=== PATIENT | male | born 1950 | race Caucasian/White ===

== ENCOUNTER 2016-12-30 05:14 | Emergency (ER) | payer MEDICARE ==
[~2016-12-30] VITALS: Ht 180.3 cm; Wt 70.0 kg
[2016-12-30 05:17] VITALS: BP 146/66; PULSE 118; RESP 18; TEMP 98.2; O2SAT 96
[2016-12-30 05:31] VITALS: BP 133/66; PULSE 115; RESP 17; O2SAT 96
[2016-12-30] MEDS ORDERED: TIOT12.9 INH (05:38)
[2016-12-30] MEDS ORDERED: METO25TA3 PO (05:38)
[2016-12-30] MEDS ORDERED: ADVA250A INH (05:38)
[2016-12-30] MEDS ORDERED: FLUT50SP EACH NARE (05:38)
[2016-12-30] MEDS ORDERED: SPIRCAP INH (05:38)
[2016-12-30] MEDS ORDERED: ALBU0.63 NEB (05:38)
[2016-12-30] MEDS ORDERED: ROSU1TAB6 PO (05:38)
--- NOTE | 2016-12-30 05:40 | PD ---
HPI Chief Complaint: Flank/Kidney Pain Time Seen by Provider: 05:37 Travel History International Travel<30 days: No Contact w/Intl Traveler<30days: No Traveled to known affect area: No History of Present Illness HPI The patient is a 66 year old male who presents to the [facility] emergency department with a history of noticing blood in his urine and small amount yesterday. He denies having any dysuria, urinary frequency, or urinary urgency , however around midnight began to have bright red blood in the urine, associated with left-sided abdominal pain. The patient reports having a history of kidney stones which this discomfort feels similar to, however he also has a history of an aortic dissection type B in 2013. The patient reports that the pain in the abdomen is a burning sensation. He reports having associated nausea without vomiting. He denies having any diarrhea. On review of systems, he has had cough and congestion for 2 days. He has had a cough productive of green phlegm. He reports having chronic shortness of breath with exertion related to COPD that has not been in usual. On review of systems otherwise, he denies having any recent fevers, neck pain, chest pain, or neurologic symptoms. [facility] Past Medical History Narrative Medical The patient's past medical history is significant for left ventricular hypertrophy, hypothyroid disorder, aortic dissection, history of kidney stones 2, hypertension, tachycardia, COPD, history of being hard of hearing in the right ear. Cardiovascular Problems: Yes (AORTIC DISSECTION, LVH) COPD: Yes Diminished Hearing: Yes ([place] RIGHT EAR) Hypertension: Yes Kidney Stones: Yes Immunizations Current: Yes Thyroid Disease: Yes (HYPO) Past Surgical History Narrative Surgical The patient's past surgical history is significant for a partial colon resection related to a tumor that was found to be benign, history of polyp removal via colonoscopy in November. Abdominal Surgery: Yes (COLON RESECTION, POLYPS REMOVED) Social History Alcohol Use: No Tobacco Use: No Substance Use: No Allergies-Medications (Allergen,Severity, Reaction): Coded Allergies: No Known Allergies (Unverified , 12/30/16) Reported Meds & Prescriptions Reported Meds & Active Scripts Active Reported Advair Diskus Inh (Fluticasone-Salmeterol Inh) 250-50 Mcg/Blist Aer 1 Puff INH BID Rinse mouth after use. Fluticasone Nasal [place] 50 Mcg/Act Naspr 50 Mcg EACH NARE BID 50 mcg/spray Rosuvastatin (Rosuvastatin Calcium) 10 Mg Tab 10 Mg PO HS Metoprolol Tartrate 25 Mg Tab 25 Mg PO DAILY Spiriva Respimat Inh (Tiotropium Inh) 2.5 Mcg/Act Aero 2 Puff INH DAILY 2.5 mcg = 1 inhalation Albuterol Neb (Albuterol Sulfate) 0.63 Mg/3 Ml Neb 0.63 Mg NEB Q4HR NEB PRN Review of Systems Except as stated in HPI: all other systems reviewed are Neg General / Constitutional: No: Fever Eyes: No: Visual changes HENT: No: Headaches Cardiovascular: No: Chest Pain or Discomfort Respiratory: No: Shortness of Breath Gastrointestinal: Positive: Nausea, Abdominal Pain, No: Vomiting, Diarrhea Genitourinary: Positive: Hematuria, No: Urgency, Frequency, Dysuria, Flank Pain Musculoskeletal: No: Pain Skin: No Rash Neurologic: No: Weakness, Focal Abnormalities, Change in Mentation, Slurred Speech, Sensory Disturbance Psychiatric: No: Depression Endocrine: No: Polydipsia Hematologic/Lymphatic: No: Easy Bruising Physical Exam Narrative General: The patient is a well-developed well-nourished male, uncomfortable appearing on arrival. He is holding the left side of his abdomen Head and Neck exam: Head is normocephalic atraumatic. Eyes: EOMI, pupils are equal round and reactive to light. Nose: Midline septum with pink mucous membranes Mouth: Dentition unremarkable. Moist mucus membranes. Posterior oropharynx is not erythematous. No tonsillar hypertrophy. Uvula midline. Airway patent. Neck: No palpable lymphadenopathy. No nuchal rigidity. No thyromegaly. Cardiovascular: Sinus tachycardia in the low 100s murmurs, gallops, or rubs. No pulse deficit to the extremities on simultaneous auscultation and palpation of his radial artery. Lungs: Soft expiratory wheezes are audible bilaterally, no rhonchi, no crackles. Abdomen: Soft, with reported tenderness on palpation laterally along the mid aspect of the abdomen. No other tenderness on palpation of the other quadrants of the abdomen. No guarding, rebound, or rigidity. Negative Pearson sign. No tenderness on palpation of McBurney's point. Extremities: No clubbing, cyanosis, or edema. 2+ pulses in all 4 extremities. No calf tenderness on palpation. Back: No spinous process tenderness to palpation. No costovertebral angle tenderness to palpation. Neurologic Exam: Grossly nonfocal. Skin Exam: No rash noted. Intact skin that is warm and dry. Data Data Last Documented VS Vital Signs Date Time Temp Pulse Resp B/P (MAP) Pulse Ox O2 Delivery O2 Flow Rate FiO2 12/30/16 05:32 115 18 12/30/16 05:31 133/66 (88) 96 12/30/16 05:17 98.2 Orders Orders Complete Blood Count With Diff (12/30/16 05:38) Comprehensive Metabolic Panel (12/30/16 05:38) Lipase (12/30/16 05:38) Urinalysis - C+S If Indicated (12/30/16 05:38) Magnesium (Mg) (12/30/16 05:38) Iv Access Insert/Monitor (12/30/16 05:38) Ecg Monitoring (12/30/16 05:38) Oximetry (12/30/16 05:38) Prothrombin Time / Inr (Pt) (12/30/16 05:53) Act Partial Throm Time (Ptt) (12/30/16 05:53) Cta Thor Abd Aorta W Iv C W3d (12/30/16 05:53) Hydromorphone Pf Inj (Dilaudid Pf Inj) (12/30/16 06:00) Ondansetron Inj (Zofran Inj) (12/30/16 06:00) Sodium Chlor 0.9% 1000 Ml Inj (Ns 1000 M (12/30/16 06:00) Labs Laboratory Tests Test 12/30/16 05:45 White Blood Count 8.9 TH/MM3 Red Blood Count 6.34 MIL/MM3 Hemoglobin 18.9 GM/DL Hematocrit 55.3 % Mean Corpuscular Volume 87.1 FL Mean Corpuscular Hemoglobin 29.8 PG Mean Corpuscular Hemoglobin Concent 34.2 % Red Cell Distribution Width 14.6 % Platelet Count 179 TH/MM3 Mean Platelet Volume 7.3 FL Neutrophils (%) (Auto) 63.0 % Lymphocytes (%) (Auto) 23.3 % Monocytes (%) (Auto) 5.7 % Eosinophils (%) (Auto) 7.0 % Basophils (%) (Auto) 1.0 % Neutrophils # (Auto) 5.6 TH/MM3 Lymphocytes # (Auto) 2.1 TH/MM3 Monocytes # (Auto) 0.5 TH/MM3 Eosinophils # (Auto) 0.6 TH/MM3 Basophils # (Auto) 0.1 TH/MM3 CBC Comment DIFF FINAL Differential Comment Prothrombin Time 10.7 SEC Prothromb Time International Ratio 1.0 RATIO Activated Partial Thromboplast Time 24.4 SEC Blood Urea Nitrogen 18 MG/DL Creatinine 1.39 MG/DL Random Glucose 117 MG/DL Total Protein 8.2 GM/DL Albumin 4.3 GM/DL Calcium Level 9.1 MG/DL Magnesium Level 2.3 MG/DL Alkaline Phosphatase 120 U/L Aspartate Amino Transf (AST/SGOT) 23 U/L Alanine Aminotransferase (ALT/SGPT) 22 U/L Total Bilirubin 0.6 MG/DL Sodium Level 142 MEQ/L Potassium Level 4.7 MEQ/L Chloride Level 106 MEQ/L Carbon Dioxide Level 28.5 MEQ/L Anion Gap 8 MEQ/L Estimat Glomerular Filtration Rate 51 ML/MIN Lipase 74 U/L MDM Medical Decision Making Medical Screen Exam Complete: Yes Emergency Medical Condition: Yes Medical Record Reviewed: Yes Differential Diagnosis Kidney stone, versus pyelonephritis, versus muscle strain, versus aortic dissection Narrative Course During the course of the patients emergency department visit, the patients history, examination, and differential diagnosis were reviewed with the patient. The patient was placed on a integrated marketing specialist with oximetry and frequent blood pressure monitoring. The patient had IV access obtained and blood work sent for analysis. The patient had an ECG done on arrival that shows a sinus rhythm heart rate of 97, no acute ST segment elevation or depression. QRS duration is 81 ms, QTC is 392 ms. The patient was initially provided normal saline 1 L IV fluid bolus, hydromorphone 0.5 mg IV, Zofran 4 mg IV. The patients laboratory studies were reviewed and remarkable for a white count of 8.9, hemoglobin 18.9, platelets 179 with 7.0 eosinophils. CMP is remarkable for creatinine 1.39, glucose 117, alkaline phosphatase 120, PT 10.7, PTT 24.4 CT scan of the thoracic and abdominal aorta is pending at the conclusion of my shift, the patient's case will be checked out to the oncoming emergency physician to disposition the patient based on the conclusion of the patient's workup. Annalise Putnam MD Dec 30, 2016 05:40
[2016-12-30 05:53] LABS: AUTOMATED NEUTROPHIL # 5.6 TH/MM3 (1.8-7.7); BASOPHIL # 0.1 TH/MM3 (0-0.2); EOSINOPHIL # 0.6 TH/MM3 (0-0.4); HEMATOCRIT 55.3 % (39.0-51.0); HEMOGLOBIN 18.9 GM/DL (13.0-17.0); LYMPH % 23.3 % (9.0-44.0); LYMPHOCYTE # 2.1 TH/MM3 (1.0-4.8); MEAN CELL VOLUME 87.1 FL (80.0-100.0); MEAN CORPUSCULAR HEMOGLOBIN 29.8 PG (27.0-34.0); MEAN CORPUSCULAR HGB CONC 34.2 % (32.0-36.0); MEAN PLATELET VOLUME 7.3 FL (7.0-11.0); MONO % 5.7 % (0.0-8.0); MONOCYTE # 0.5 TH/MM3 (0-0.9); PLATELET COUNT 179 TH/MM3 (150-450); RED BLOOD COUNT 6.34 MIL/MM3 (4.50-5.90); RED CELL DISTRIBUTION WIDTH 14.6 % (11.6-17.2); WHITE BLOOD COUNT 8.9 TH/MM3 (4.0-11.0)
[2016-12-30] MEDS ORDERED: ONDANSETRON HCL 4 MG/2 ML VIAL IV PUSH ONE (06:00)
[2016-12-30] MEDS ORDERED: SODIUM CHLOR 0.9% 1000 ML INJ 1,000 ML IV SCH (06:00)
[2016-12-30] MEDS ORDERED: HYDROmorphone HCL PF 0.5 MG/0.5 ML SYRINGE IV PUSH ONE ×2 (06:00→07:45)
[2016-12-30 06:15] LABS: ALKALINE PHOSPHATASE 120 U/L (45-117); TOTAL BILIRUBIN ADULT 0.6 MG/DL (0.2-1.0); TOTAL PROTEIN 8.2 GM/DL (6.4-8.2)
[2016-12-30 06:35] LABS: ALBUMIN 4.3 GM/DL (3.4-5.0); ALT (GPT) 22 U/L (12-78); AST (GOT) 23 U/L (15-37); BICARBONATE 28.5 MEQ/L (21.0-32.0); BLOOD UREA NITROGEN 18 MG/DL (7-18); CALCIUM 9.1 MG/DL (8.5-10.1); CHLORIDE 106 MEQ/L (98-107); CREATININE 1.39 MG/DL (0.60-1.30); GLOMERULAR FILTRATION RATE 51 ML/MIN (>89); GLUCOSE,RANDOM 117 MG/DL (74-106); LIPASE 74 U/L (73-393); MAGNESIUM 2.3 MG/DL (1.5-2.5); SODIUM (NA) 142 MEQ/L (136-145)
[2016-12-30 06:41] LABS: PROTHROMBIN TIME - PATIENT 10.7 SEC (9.8-11.6)
[2016-12-30] MEDS ORDERED: IOHEXOL 350 MG/ML 10 ML VIAL (for RAD DIAG) IVCONTRAST ONE (07:27)
[2016-12-30 07:30] VITALS: BP 155/71; PULSE 110; RESP 18; O2SAT 95
--- NOTE | 2016-12-30 08:22 | RADRPT ---
EXAM DATE/TIME: 12/30/2016 07:02 [place] COMPARISON: No previous studies available for comparison. INDICATIONS : Left flank pain with hematuria. IV CONTRAST: 94 cc Omnipaque 350 (iohexol) IV RADIATION DOSE: 23.79 CTDIvol (mGy) MEDICAL HISTORY : Renal calculi. Hypertension. Chronic obstructive pulmonary disease. AAA. SURGICAL HISTORY : Colon resection. ENCOUNTER: Initial ACUITY: 1 day PAIN SCALE: 8/10 LOCATION: Left flank TECHNIQUE: Volumetric scanning was performed using a multi-row detector CT scanner. The data was post processed with a variety of visualization algorithms including full volume maximum intensity projection, multi -planar sliding thin slab reformation, curved planar reformation, and surface rendering techniques. Using automated exposure control and adjustment of the mA and/or kV according to patient size, radiat ion dose was kept as low as reasonably achievable to obtain optimal diagnostic quality images. DICOM format image data is available electronically for review and comparison. FINDINGS: There is evidence of acute obstructive uropathy of the left proximal ureter secondary to an 8 mm calc ified calculus resulting in moderate ureteropelvocaliectasis on the left. There is an extensive type I aortic dissection (DeBakey classification) which involves the ascending aorta, aortic arch and shilo cending aorta and extends to the level several centimeters above the aortic bifurcation. The patient gives a history of extensive aortic dissection. The appearance suggests chronic aortic dissection b ut it is difficult to determine if this has extended since the diagnosis as no previous study is avai lable for comparison. The liver, spleen, pancreas and adrenal glands are unremarkable. Bilateral renal cysts are noted. T he largest cyst is noted on the right and measures 7.2 cm. The inferior vena cava is normal. There is no paraaortic, retroperitoneal or mesenteric lymphadenopathy. The gallbladder is unremarkable. D egenerative changes and scoliosis of the thoracolumbar spine are noted. The prostate gland is marked ly enlarged. Bilateral inguinal hernias containing only fat are noted. No bowel obstruction is note d. Extensive emphysematous changes are noted within the lungs bilaterally. CONCLUSION: 1. Acute obstructive uropathy of the left proximal ureter secondary to an 8 mm calcified ureteral ca lculus resulting in moderate ureteropelvocaliectasis on the left. 2. Type I aortic dissection which extends from the ascending thoracic aorta to the level several kacey timeters proximal to the bifurcation and likely is chronic. 3. Markedly enlarged prostate gland. 4. Bilateral inguinal hernias containing only fat. 5. Bilateral renal cysts. 6. Degenerative changes and scoliosis of the thoracolumbar spine. 7. Diffuse emphysematous changes bilaterally. Carlos Miguel MD on December 30, 2016 at 7:38 Board Certified Radiologist. This report was verified electronically.
[2016-12-30 08:52] LABS: BILIRUBIN, URINE NEG (NEG); BLOOD, URINE LARGE (NEG); CALCIUM OXALATE CRYSTALS,URINE FEW /hpf; GLUCOSE,URINE NEG (NEG); KETONE, URINE TRACE mg/dL (NEG); NITRITE,URINE NEG (NEG); URINE COLOR LIGHT-RED (YELLW/STRAW); URINE LEUKOCYTE ESTERASE TRACE (NEG)
[2016-12-30 09:00] VITALS: BP 119/68; PULSE 100; RESP 20; O2SAT 95
[2016-12-30] MEDS ORDERED: ZOFR4TAB3 SL (09:11)
[2016-12-30] MEDS ORDERED: HYDR-3533 PO (09:11)
--- NOTE | 2016-12-30 09:12 | PD ---
Physical Exam Date Seen by Provider: Dec 30, 2016 Time Seen by Provider: 07:00 Narrative Case signed out to me at [address] Putnam, please see Dr. Putnam's note for further details. Patient here with left flank pains, hematuria, awaiting CAT scan for further evaluation. Laboratory Tests Test 12/30/16 05:45 12/30/16 08:30 Red Blood Count 6.34 MIL/MM3 (4.50-5.90) Hemoglobin 18.9 GM/DL (13.0-17.0) Hematocrit 55.3 % (39.0-51.0) Eosinophils (%) (Auto) 7.0 % (0.0-4.0) Eosinophils # (Auto) 0.6 TH/MM3 (0-0.4) Creatinine 1.39 MG/DL (0.60-1.30) Random Glucose 117 MG/DL (74-106) Alkaline Phosphatase 120 U/L (45-117) Estimat Glomerular Filtration Rate 51 ML/MIN (>89) Urine Color LIGHT-RED (YELLW/STRAW) Urine Turbidity HAZY (CLEAR) Urine Specific [place] 1.050 (1.002-1.035) Urine Protein 30 mg/dL (NEG-TRACE) Urine Ketones TRACE mg/dL (NEG) Urine Occult Blood LARGE (NEG) Urine Leukocyte Esterase TRACE (NEG) Urine WBC 6 /hpf (0-5) Urine Calcium Oxalate Crystals FEW /hpf (NONE) Lab work shows significant hematuria. CAT scan was discussed with Dr. Elam of radiology and he sees an obvious aortic dissection which the patient has history of having. At this point, he does have a proximal 8 mm stone, consistent with his symptoms and hematuria. There is hydronephrosis. At this point, I do not think that the aortic dissection is acute, patient has known history for which she was treated in [place]. Case was then discussed with Dr. Barrera of urology and he states that he will be willing to see the patient this afternoon and possible lithotripsy tomorrow. Patient had been given 2 doses of Dilaudid by Dr. Putnam and me, and on reevaluation at 9 AM is fairly comfortable, is comfortable with following up as an outpatient today. My plan would be to release him with instructions to follow-up with urology. Return for any worsening in pain, vomiting, or new symptoms as needed. The plan has been discussed with the patient and he states understanding. Data Data Last Documented VS Vital Signs Date Time Temp Pulse Resp B/P (MAP) Pulse Ox O2 Delivery O2 Flow Rate FiO2 12/30/16 05:32 115 18 12/30/16 05:31 133/66 (88) 96 12/30/16 05:17 98.2 Orders Orders Complete Blood Count With Diff (12/30/16 05:38) Comprehensive Metabolic Panel (12/30/16 05:38) Lipase (12/30/16 05:38) Urinalysis - C+S If Indicated (12/30/16 05:38) Magnesium (Mg) (12/30/16 05:38) Iv Access Insert/Monitor (12/30/16 05:38) Ecg Monitoring (12/30/16 05:38) Oximetry (12/30/16 05:38) Prothrombin Time / Inr (Pt) (12/30/16 05:53) Act Partial Throm Time (Ptt) (12/30/16 05:53) Cta Thor Abd Aorta W Iv C W3d (12/30/16 05:53) Hydromorphone Pf Inj (Dilaudid Pf Inj) (12/30/16 06:00) Ondansetron Inj (Zofran Inj) (12/30/16 06:00) Sodium Chlor 0.9% 1000 Ml Inj (Ns 1000 M (12/30/16 06:00) Electrocardiogram (12/30/16 ) Iohexol 350 Inj (Omnipaque 350 Inj) (12/30/16 07:27) Hydromorphone Pf Inj (Dilaudid Pf Inj) (12/30/16 07:45) Labs Laboratory Tests Test 12/30/16 05:45 12/30/16 08:30 White Blood Count 8.9 TH/MM3 Red Blood Count 6.34 MIL/MM3 Hemoglobin 18.9 GM/DL Hematocrit 55.3 % Mean Corpuscular Volume 87.1 FL Mean Corpuscular Hemoglobin 29.8 PG Mean Corpuscular Hemoglobin Concent 34.2 % Red Cell Distribution Width 14.6 % Platelet Count 179 TH/MM3 Mean Platelet Volume 7.3 FL Neutrophils (%) (Auto) 63.0 % Lymphocytes (%) (Auto) 23.3 % Monocytes (%) (Auto) 5.7 % Eosinophils (%) (Auto) 7.0 % Basophils (%) (Auto) 1.0 % Neutrophils # (Auto) 5.6 TH/MM3 Lymphocytes # (Auto) 2.1 TH/MM3 Monocytes # (Auto) 0.5 TH/MM3 Eosinophils # (Auto) 0.6 TH/MM3 Basophils # (Auto) 0.1 TH/MM3 CBC Comment DIFF FINAL Differential Comment Prothrombin Time 10.7 SEC Prothromb Time International Ratio 1.0 RATIO Activated Partial Thromboplast Time 24.4 SEC Blood Urea Nitrogen 18 MG/DL Creatinine 1.39 MG/DL Random Glucose 117 MG/DL Total Protein 8.2 GM/DL Albumin 4.3 GM/DL Calcium Level 9.1 MG/DL Magnesium Level 2.3 MG/DL Alkaline Phosphatase 120 U/L Aspartate Amino Transf (AST/SGOT) 23 U/L Alanine Aminotransferase (ALT/SGPT) 22 U/L Total Bilirubin 0.6 MG/DL Sodium Level 142 MEQ/L Potassium Level 4.7 MEQ/L Chloride Level 106 MEQ/L Carbon Dioxide Level 28.5 MEQ/L Anion Gap 8 MEQ/L Estimat Glomerular Filtration Rate 51 ML/MIN Lipase 74 U/L Urine Color LIGHT-RED Urine Turbidity HAZY Urine pH 6.0 Urine Specific Excel 1.050 Urine Protein 30 mg/dL Urine Glucose (UA) NEG mg/dL Urine Ketones TRACE mg/dL Urine Occult Blood LARGE Urine Nitrite NEG Urine Bilirubin NEG Urine Urobilinogen LESS THAN 2.0 MG/DL Urine Leukocyte Esterase TRACE Urine RBC /hpf Urine WBC 6 /hpf Urine Calcium Oxalate Crystals FEW /hpf Microscopic Urinalysis Comment CULT NOT INDICATED MDM Medical Record Reviewed: Yes Supervised Visit with MALLIKA: No Diagnosis Primary Impression: Renal colic on left side Referrals: Alon Barrera MD 1 day Call to confirm afternoon appointment Med/Other Pt SpecificInfo: Prescription(s) given Scripts Ondansetron Odt (Zofran Odt) 4 Mg Tab 4 MG SL Q6HR Y for Nausea/Vomiting, #7 TAB 0 Refills Prov: Trey Vickers MD 12/30/16 Hydrocodone-Acetaminophen (Lortab) 5-325 Mg Tab 1-2 TAB PO Q6H Y for PAIN, #20 TAB 0 Refills Prov: Trey Vickers MD 12/30/16 Disposition: 01 DISCHARGE HOME Condition: Stable [place],Rewadee MD Dec 30, 2016 09:11
--- NOTE | 2016-12-30 21:12 | EKG ---
Date Performed: 12/30/2016 Time Performed: 05:40:39 PTAGE: 66 years EKG: Sinus rhythm NORMAL ECG NO PREVIOUS TRACING DOCTOR: Jared Meyer Interpretating Date/Time 12/30/2016 21:11:05
--- NOTE | 2016-12-30 21:12 | EKG ---
Date Performed: 12/30/2016 Time Performed: 05:40:39 PTAGE: 66 years EKG: Sinus rhythm NORMAL ECG NO PREVIOUS TRACING DOCTOR: Jared Meyer Interpretating Date/Time 12/30/2016 21:11:05
--- NOTE | 2016-12-30 21:12 | EKG ---
Date Performed: 12/30/2016 Time Performed: 05:40:39 PTAGE: 66 years EKG: Sinus rhythm NORMAL ECG NO PREVIOUS TRACING DOCTOR: Jared Meyer Interpretating Date/Time 12/30/2016 21:11:05
== END 2016-12-30 09:53 | disposition home or self-care (01) ==
LOC: NEPC 05:14
DX: N23 Unspecified renal colic (principal); R31.9 Hematuria, unspecified; N13.30 Unspecified hydronephrosis; N40.0 Benign prostatic hyperplasia without lower urinary tract symptoms; K40.20 Bilateral inguinal hernia, without obstruction or gangrene, not specified as recurrent; N28.1 Cyst of kidney, acquired; R00.0 Tachycardia, unspecified; R05 Cough; R09.81 Nasal congestion
CPT/HCPCS: 71275; 74174; 80053; 81001; 83690; 83735; 85025; 85610; 85730; 93005; 96361; 96374; 96375; 99285; J1170; J2405; J7030; Q9967

== ENCOUNTER 2016-12-31 03:27 | Emergency (ER) | payer MEDICARE ==
[~2016-12-31] VITALS: Ht 180.3 cm; Wt 70.0 kg
[~2016-12-31 03:27] MED LIST: ADVA250A INH; ALBU0.63 NEB; FLUT50SP EACH NARE; HYDR-3533 PO; METO25TA3 PO; ROSU1TAB6 PO; TIOT12.9 INH; ZOFR4TAB3 SL
[2016-12-31 03:28] VITALS: BP 190/132; PULSE 122; RESP 20; TEMP 98; O2SAT 93
[2016-12-31 03:32] VITALS: BP 177/88; PULSE 112; RESP 20; TEMP 97.6; O2SAT 94
--- NOTE | 2016-12-31 03:38 | PD ---
HPI Chief Complaint: Flank/Kidney Pain Time Seen by Provider: 03:38 Travel History International Travel<30 days: No Contact w/Intl Traveler<30days: No Traveled to known affect area: No History of Present Illness HPI 66-year-old male came to the emergency room with history of intractable left flank pain. Patient was seen in the emergency room 2 days ago for left flank pain and was diagnosed with an 8 mm ureteral stone. He was discharged home to follow up with urology. As per the patient he went to see urology and was told that he would have a stent put in on January 11. However his pain has come back and he is very uncomfortable. Patient was tachycardic upon arrival. Denies any fever or chills. Patient says he was discharged home on pain medications which he is been trying to take but has not been helpful. [facility], [facility] Past Medical History Narrative Medical List of his past medical, surgical, social and family history is reviewed from the nursing note. Cardiovascular Problems: Yes (AORTIC DISSECTION, LVH) COPD: Yes Diminished Hearing: Yes ([place] RIGHT EAR) Hypertension: Yes Kidney Stones: Yes Immunizations Current: Yes Thyroid Disease: Yes (HYPO) Past Surgical History Abdominal Surgery: Yes (COLON RESECTION, POLYPS REMOVED) Social History Alcohol Use: No Tobacco Use: No Substance Use: No Allergies-Medications (Allergen,Severity, Reaction): Coded Allergies: No Known Allergies (Unverified , 12/31/16) Comments No known allergies. Reported Meds & Prescriptions Reported Meds & Active Scripts Active Zofran Odt (Ondansetron Odt) 4 Mg Tab 4 Mg SL Q6HR PRN Lortab (Hydrocodone-Acetaminophen) 5-325 Mg Tab 1-2 Tab PO Q6H PRN Reported Advair Diskus Inh (Fluticasone-Salmeterol Inh) 250-50 Mcg/Blist Aer 1 Puff INH BID Rinse mouth after use. Fluticasone Nasal [place] 50 Mcg/Act Naspr 50 Mcg EACH NARE BID 50 mcg/spray Rosuvastatin (Rosuvastatin Calcium) 10 Mg Tab 10 Mg PO HS Metoprolol Tartrate 25 Mg Tab 25 Mg PO DAILY Spiriva Respimat Inh (Tiotropium Inh) 2.5 Mcg/Act Aero 2 Puff INH DAILY 2.5 mcg = 1 inhalation Albuterol Neb (Albuterol Sulfate) 0.63 Mg/3 Ml Neb 0.63 Mg NEB Q4HR NEB PRN Narrative Medication List of his home medications reviewed from the nursing note. Review of Systems Except as stated in HPI: all other systems reviewed are Neg Genitourinary: Positive: Flank Pain Physical Exam Narrative GENERAL: Awake, alert, moderate distress SKIN: Focused skin assessment warm/dry. HEAD: Atraumatic. Normocephalic. EYES: Pupils equal and round. No scleral icterus. No injection or drainage. ENT: No nasal bleeding or discharge. Mucous membranes pink and moist. NECK: Trachea midline. No JVD. CARDIOVASCULAR: Regular rate and rhythm. No murmur appreciated. RESPIRATORY: No accessory muscle use. Clear to auscultation. Breath sounds equal bilaterally. GASTROINTESTINAL: Abdomen soft, non-tender, nondistended. Hepatic and splenic margins not palpable. MUSCULOSKELETAL: No obvious deformities. No clubbing. No cyanosis. No edema. NEUROLOGICAL: Awake and alert. No obvious cranial nerve deficits. Motor grossly within normal limits. Normal speech. PSYCHIATRIC: Appropriate mood and affect; insight and judgment normal. Data Data Last Documented VS Orders Orders Complete Blood Count With Diff (12/31/16 03:46) Basic Metabolic Panel (Bmp) (12/31/16 03:46) Ecg Monitoring (12/31/16 03:46) Iv Access Insert/Monitor (12/31/16 03:46) Ketorolac Inj (Toradol Inj) (12/31/16 04:00) Morphine Inj (Morphine Inj) (12/31/16 04:00) Ondansetron Inj (Zofran Inj) (12/31/16 04:00) Sodium Chloride 0.9% Flush (Ns Flush) (12/31/16 04:00) Sodium Chlor 0.9% 1000 Ml Inj (Ns 1000 M (12/31/16 03:46) Ed Discharge Order (12/31/16 06:01) Labs Laboratory Tests Test 12/31/16 04:04 12/31/16 04:48 White Blood Count 9.8 TH/MM3 Red Blood Count 5.78 MIL/MM3 Hemoglobin 17.1 GM/DL Hematocrit 49.6 % Mean Corpuscular Volume 85.9 FL Mean Corpuscular Hemoglobin 29.6 PG Mean Corpuscular Hemoglobin Concent 34.4 % Red Cell Distribution Width 14.8 % Platelet Count 161 TH/MM3 Mean Platelet Volume 7.4 FL Neutrophils (%) (Auto) 77.7 % Lymphocytes (%) (Auto) 12.7 % Monocytes (%) (Auto) 6.0 % Eosinophils (%) (Auto) 2.8 % Basophils (%) (Auto) 0.8 % Neutrophils # (Auto) 7.6 TH/MM3 Lymphocytes # (Auto) 1.2 TH/MM3 Monocytes # (Auto) 0.6 TH/MM3 Eosinophils # (Auto) 0.3 TH/MM3 Basophils # (Auto) 0.1 TH/MM3 CBC Comment DIFF FINAL Differential Comment Blood Urea Nitrogen 16 MG/DL Creatinine 1.27 MG/DL Random Glucose 104 MG/DL Calcium Level 8.2 MG/DL Sodium Level 141 MEQ/L Potassium Level 4.2 MEQ/L Chloride Level 110 MEQ/L Carbon Dioxide Level 25.0 MEQ/L Anion Gap 6 MEQ/L Estimat Glomerular Filtration Rate 56 ML/MIN MDM Medical Decision Making Medical Screen Exam Complete: Yes Emergency Medical Condition: Yes Medical Record Reviewed: Yes Differential Diagnosis Ureteral colic, ureteral calculus Narrative Course 5:40 AM blood test results were back and within acceptable limits. Patient was given 1 L of IV fluid bolus and medicated for pain and nausea. He looked comfortable after the pain medication. I discussed the case with Dr. Barrera and he recalled seeing the patient yesterday. He said that if patient is comfortable he could be discharged and he would see the patient in his office at 8 in the morning today and put a stent in today. Patient was informed of this plan and he was comfortable going home and go to his office. I'll discharge him. Procedures EKG Prior to Arrival: No Physician Communication Physician Communication Dr. Barrera Diagnosis Primary Impression: Ureteral calculi Additional Impression: Renal colic Referrals: Alon Barrera MD Additional Instructions: Please go to see Dr. Nvaya Aiken in his office at 8 AM. He plans to put a ureteral stent. Do not eat or drink anything till then. Med/Other Pt SpecificInfo: No Change to Meds Disposition: 01 DISCHARGE HOME Condition: Stable Brett Meyer MD Dec 31, 2016 03:38
[2016-12-31] MEDS ORDERED: SODIUM CHLOR 0.9% 1000 ML INJ 1,000 ML IV ONE ×2 (03:46)
[2016-12-31] MEDS ORDERED: SODIUM CHLORIDE 0.9% FLUSH 10 ML FLUSH IVF PRN ×2 (04:00)
[2016-12-31] MEDS ORDERED: KETOROLAC TROMETHAMINE 30 MG/ML (IVP) VIAL IV PUSH ONE ×2 (04:00)
[2016-12-31] MEDS ORDERED: ONDANSETRON HCL 4 MG/2 ML VIAL IV PUSH ONE ×2 (04:00)
[2016-12-31] MEDS ORDERED: MORPHINE SULFATE 4 MG/ML INJ IV PUSH ONE ×2 (04:00)
[2016-12-31 04:31] LABS: AUTOMATED NEUTROPHIL # 7.6 TH/MM3 (1.8-7.7); BASOPHIL # 0.1 TH/MM3 (0-0.2); BASOPHIL % 0.8 % (0.0-2.0); EOSINOPHIL # 0.3 TH/MM3 (0-0.4); EOSINOPHIL % 2.8 % (0.0-4.0); HEMATOCRIT 49.6 % (39.0-51.0); HEMOGLOBIN 17.1 GM/DL (13.0-17.0); LYMPH % 12.7 % (9.0-44.0); LYMPHOCYTE # 1.2 TH/MM3 (1.0-4.8); MEAN CELL VOLUME 85.9 FL (80.0-100.0); MEAN CORPUSCULAR HEMOGLOBIN 29.6 PG (27.0-34.0); MEAN CORPUSCULAR HGB CONC 34.4 % (32.0-36.0); MEAN PLATELET VOLUME 7.4 FL (7.0-11.0); MONOCYTE # 0.6 TH/MM3 (0-0.9); NEUT % 77.7 % (16.0-70.0); PLATELET COUNT 161 TH/MM3 (150-450); RED BLOOD COUNT 5.78 MIL/MM3 (4.50-5.90); RED CELL DISTRIBUTION WIDTH 14.8 % (11.6-17.2); WHITE BLOOD COUNT 9.8 TH/MM3 (4.0-11.0)
[2016-12-31 05:14] LABS: CALCIUM 8.2 MG/DL (8.5-10.1); CREATININE 1.27 MG/DL (0.60-1.30)
[2016-12-31 05:36] VITALS: BP 133/76; PULSE 100; RESP 16; O2SAT 92
== END 2016-12-31 06:20 | disposition home or self-care (01) ==
LOC: NEPE 03:27
DX: N20.1 Calculus of ureter (principal); I10 Essential (primary) hypertension; J44.9 Chronic obstructive pulmonary disease, unspecified
CPT/HCPCS: 80048; 85025; 96361; 96374; 96375; 99284; J1885; J2270; J2405; J7030

== ENCOUNTER 2017-07-16 19:48 | Inpatient (IN) | payer MEDICARE ==
[~2017-07-16] VITALS: Ht 180.3 cm; Wt 76.5 kg
[2017-07-16 20:01] VITALS: BP 129/82; PULSE 126; RESP 26; TEMP 97.9; O2SAT 93
[2017-07-16] MEDS ORDERED: ASPI81TA81 (20:19)
[2017-07-16 20:20] VITALS: O2SAT 96
[2017-07-16] MEDS ORDERED: PRED20 PO (20:24)
--- NOTE | 2017-07-16 20:24 | PD ---
HPI Chief Complaint: Respiratory Symptoms Time Seen by Provider: 20:13 Travel History International Travel<30 days: No Contact w/Intl Traveler<30days: No Traveled to known affect area: No History of Present Illness HPI The patient 67 years old and has COPD. He reports taking Advair Pro Air and Spiriva. Normally the primary transfers good breathing control throughout the course of the day however today he is only had about 2 hours of relief. Similar symptoms reported for yesterday. He reports shortness of breath much worse than normal today and yesterday. Dyspnea on exertion is reported. Orthopnea is reported. He has no chest pain. He reports recovering from a URI which was bothersome about a week to 10 days prior however had been asymptomatic until 2 days ago. PFSH Past Medical History Cardiovascular Problems: Yes (AORTIC DISSECTION, LVH) COPD: Yes Diminished Hearing: Yes ([place] RIGHT EAR) Hypertension: Yes Kidney Stones: Yes Immunizations Current: Yes Thyroid Disease: Yes (HYPO) Past Surgical History Abdominal Surgery: Yes (COLON RESECTION, POLYPS REMOVED) Social History Alcohol Use: No Tobacco Use: No Substance Use: No Allergies-Medications (Allergen,Severity, Reaction): Coded Allergies: No Known Allergies (Verified Adverse Reaction, Unknown, 07/16/17) Reported Meds & Prescriptions Reported Meds & Active Scripts Active Prednisone 20 Mg Tab 40 Mg PO DAILY 4 Days Take 40 mg (2 tablets) daily for 5 days Lortab (Hydrocodone-Acetaminophen) 5-325 Mg Tab 1-2 Tab PO Q6H PRN Reported Aspir-81 (Aspirin) 81 Mg Tabdr Advair Diskus Inh (Fluticasone-Salmeterol Inh) 250-50 Mcg/Blist Aer 1 Puff INH BID Rinse mouth after use. Fluticasone Nasal [place] 50 Mcg/Act Naspr 50 Mcg EACH NARE BID 50 mcg/spray Rosuvastatin (Rosuvastatin Calcium) 10 Mg Tab 10 Mg PO HS Metoprolol Tartrate 25 Mg Tab 25 Mg PO DAILY Spiriva Respimat Inh (Tiotropium Inh) 2.5 Mcg/Act Aero 2 Puff INH DAILY 2.5 mcg = 1 inhalation Review of Systems Except as stated in HPI: all other systems reviewed are Neg General / Constitutional: No: Fever Physical Exam Narrative GENERAL: 67-year-old male pleasant well-nourished well-developed mildly dyspneic Vital Signs Date Time Temp Pulse Resp B/P (MAP) Pulse Ox O2 Delivery O2 Flow Rate FiO2 07/16/17 20:01 97.9 126 26 129/82 (98) 93 SKIN: Warm and dry. HEAD: Atraumatic. Normocephalic. EYES: Pupils equal and round. No scleral icterus. No injection or drainage. ENT: No nasal bleeding or discharge. Mucous membranes pink and moist. NECK: Trachea midline. No JVD. CARDIOVASCULAR: Tachycardia. Regular rhythm. RESPIRATORY: Mild tachypnea. Wheezing present bilaterally primarily on the expiratory phase GASTROINTESTINAL: Abdomen soft, non-tender, nondistended. Hepatic and splenic margins not palpable. MUSCULOSKELETAL: Extremities without clubbing, cyanosis, or edema. No obvious deformities. NEUROLOGICAL: Awake and alert. No obvious cranial nerve deficits. Motor grossly within normal limits. Five out of 5 muscle strength in the arms and legs. Normal speech. PSYCHIATRIC: Appropriate mood and affect; insight and judgment normal. Data Data Last Documented VS Vital Signs Date Time Temp Pulse Resp B/P (MAP) Pulse Ox O2 Delivery O2 Flow Rate FiO2 07/16/17 23:13 129 18 135/80 (98) 95 Nasal Cannula 2.00 07/16/17 20:01 97.9 Orders Orders Complete Blood Count With Diff (07/16/17 20:19) Basic Metabolic Panel (Bmp) (07/16/17 20:19) Iv Access Insert/Monitor (07/16/17 20:19) Ecg Monitoring (07/16/17 20:19) Oximetry (07/16/17 20:19) Oxygen Administration (07/16/17 20:19) Chest, Single Ap (07/16/17 20:19) Sodium Chloride 0.9% Flush (Ns Flush) (07/16/17 20:30) Methylprednisolone So Succ Inj (Solumedr (07/16/17 20:30) Albuterol-Ipratropium Neb (Duoneb Neb) (07/16/17 20:30) Sodium Chlor 0.9% 1000 Ml Inj (Ns 1000 M (07/16/17 20:30) Albuterol Neb (Albuterol Neb) (07/16/17 22:00) Admit Order (Ed Use Only) (07/16/17 ) Washer Blanket / Telemetry LORAINE.Q8H (07/16/17 23:33) Vital Signs (Adult) Q4H (07/16/17 23:33) Diet Heart Healthy (07/17/17 Breakfast) Activity Oob With Assistance (07/16/17 23:33) Notify Dr: Other (07/16/17 23:33) Labs Laboratory Tests Test 07/16/17 20:41 White Blood Count 7.4 TH/MM3 Red Blood Count 5.96 MIL/MM3 Hemoglobin 17.0 GM/DL Hematocrit 50.9 % Mean Corpuscular Volume 85.3 FL Mean Corpuscular Hemoglobin 28.6 PG Mean Corpuscular Hemoglobin Concent 33.5 % Red Cell Distribution Width 15.3 % Platelet Count 184 TH/MM3 Mean Platelet Volume 7.2 FL Neutrophils (%) (Auto) 58.0 % Lymphocytes (%) (Auto) 24.8 % Monocytes (%) (Auto) 6.3 % Eosinophils (%) (Auto) 9.5 % Basophils (%) (Auto) 1.4 % Neutrophils # (Auto) 4.3 TH/MM3 Lymphocytes # (Auto) 1.8 TH/MM3 Monocytes # (Auto) 0.5 TH/MM3 Eosinophils # (Auto) 0.7 TH/MM3 Basophils # (Auto) 0.1 TH/MM3 CBC Comment DIFF FINAL Differential Comment Blood Urea Nitrogen 19 MG/DL Creatinine 1.30 MG/DL Random Glucose 140 MG/DL Calcium Level 9.2 MG/DL Sodium Level 140 MEQ/L Potassium Level 3.9 MEQ/L Chloride Level 106 MEQ/L Carbon Dioxide Level 24.2 MEQ/L Anion Gap 10 MEQ/L Estimat Glomerular Filtration Rate 55 ML/MIN MDM Medical Decision Making Medical Screen Exam Complete: Yes Emergency Medical Condition: Yes Medical Record Reviewed: Yes Differential Diagnosis COPD, effusion, anemia, CHF Narrative Course CBC & BMP Diagram 07/16/17 20:41 Calcium Level 9.2 Patient received 6 rounds of breathing treatments. Mild persistent wheezing audible at bedside. Patient ambulated in the ED and upon return to the bed had an O2 sat of 90 on room air with coughing and tachycardia. Admission for ongoing oxygen therapy breathing treatments. d/w Dr Martinez. Admission to telemetry arranged. Consult to Dr Mercado placed per his request. Diagnosis Primary Impression: COPD exacerbation Admitting Information Admitting Physician Requests: Admit Med/Other Pt SpecificInfo: Prescription(s) given Scripts Prednisone (Prednisone) 20 Mg Tab 40 MG PO DAILY for 4 Days, #8 TAB 0 Refills Take 40 mg (2 tablets) daily for 5 days Prov: Kuldeep Duron MD 07/16/17 Disposition: 01 DISCHARGE HOME Condition: Stable Kuldeep Duron MD July 16, 2017 20:24
[2017-07-16] MEDS ORDERED: SODIUM CHLORIDE 0.9% FLUSH 10 ML FLUSH IVF PRN (20:30)
[2017-07-16] MEDS ORDERED: methylPREDNISolone SOD SUCC 125 MG/2 ML VIAL IV PUSH ONE (20:30)
[2017-07-16] MEDS ORDERED: SODIUM CHLOR 0.9% 1000 ML INJ 1,000 ML IV ONE (20:30)
[2017-07-16 20:45] VITALS: O2SAT 96
[2017-07-16] MEDS: RESP: ALBUTEROL 2.5 MG/IPRATROPIUM 0.5 MG NEB (SCH) INH ×2 (20:45→20:46)
--- NOTE | 2017-07-16 20:48 | RADRPT ---
EXAM DATE/TIME: 07/16/2017 20:28 [facility] COMPARISON: No previous studies available for comparison. INDICATIONS : Shortness of breath and cough. MEDICAL HISTORY : Chronic obstructive pulmonary disease. SURGICAL HISTORY : None. ENCOUNTER: Initial ACUITY: 1 week PAIN SCORE: 0/10 LOCATION: chest FINDINGS: 2 portable frontal views of the chest show lungs to be hyperaerated. No infiltrates, effusions, or pn eumothorax. Heart is normal in size. Bony structures are unremarkable. CONCLUSION: Hyperinflation suggesting COPD. No acute infiltrate or effusion. Mayo Neal Jr., MD on July 16, 2017 at 20:45 Board Certified Radiologist. This report was verified electronically.
[2017-07-16 21:19] LABS: AUTOMATED NEUTROPHIL # 4.3 TH/MM3 (1.8-7.7); BASOPHIL # 0.1 TH/MM3 (0-0.2); BASOPHIL % 1.4 % (0.0-2.0); EOSINOPHIL # 0.7 TH/MM3 (0-0.4); EOSINOPHIL % 9.5 % (0.0-4.0); HEMATOCRIT 50.9 % (39.0-51.0); LYMPH % 24.8 % (9.0-44.0); LYMPHOCYTE # 1.8 TH/MM3 (1.0-4.8); MEAN CELL VOLUME 85.3 FL (80.0-100.0); MEAN CORPUSCULAR HEMOGLOBIN 28.6 PG (27.0-34.0); MEAN CORPUSCULAR HGB CONC 33.5 % (32.0-36.0); MEAN PLATELET VOLUME 7.2 FL (7.0-11.0); MONO % 6.3 % (0.0-8.0); MONOCYTE # 0.5 TH/MM3 (0-0.9); PLATELET COUNT 184 TH/MM3 (150-450); RED BLOOD COUNT 5.96 MIL/MM3 (4.50-5.90); RED CELL DISTRIBUTION WIDTH 15.3 % (11.6-17.2); WHITE BLOOD COUNT 7.4 TH/MM3 (4.0-11.0)
[2017-07-16 21:51] LABS: BICARBONATE 24.2 MEQ/L (21.0-32.0); CALCIUM 9.2 MG/DL (8.5-10.1); CREATININE 1.3 MG/DL (0.60-1.30)
[2017-07-16] MEDS: RESP: ALBUTEROL 2.5 MG/3 ML NEB (SCH) INH ×2 (22:04→22:05)
[2017-07-16 23:06] VITALS: O2SAT 94
[2017-07-16 23:13] VITALS: BP 135/80; PULSE 129; RESP 18; O2SAT 95
[2017-07-17] VITALS (9 sets, daily range): BP systolic 110–145; BP diastolic 60–85; PULSE 91–113; RESP 17–22; TEMP 97.4–98.1; O2SAT 95–96
[2017-07-17] MEDS ORDERED: ACETAMINOPHEN/HYDROcodone 325 MG/5 MG TAB PO PRN (03:45)
[2017-07-17] MEDS ORDERED: SODIUM CHLORIDE 0.9% FLUSH 10 ML FLUSH IV FLUSH PRN (03:45)
[2017-07-17] MEDS: predniSONE 20 MG TAB PO SCH (08:42)
[2017-07-17] MEDS: METOPROLOL TARTRATE 25 MG TAB PO SCH (08:42)
[2017-07-17] MEDS: BUDESONIDE-FORMOTEROL 160/4.5 MCG INHALER INH SCH ×2 (14:17→21:31)
[2017-07-17] MEDS: SODIUM CHLORIDE 0.9% FLUSH 10 ML FLUSH IV FLUSH SCH ×2 (14:18→21:31)
[2017-07-17] MEDS: TIOTROPIUM BROMIDE 18 MCG INH INH SCH (14:18)
--- NOTE | 2017-07-17 17:02 | MB ---
cc: Brady Griffin MD, Dany A MD DATE: 07/17/2017 REASON FOR CONSULTATION: COPD exacerbation. HISTORY OF PRESENT ILLNESS: The patient is a pleasant 67-year-old gentleman who is known to have severe COPD. The patient followed up with Dr. Mercado. He reported he has had shortness breath with coughing and wheezing. He came to the hospital. He is doing better today. He is currently on oral prednisone, and he is on Symbicort. He is not having active fever, chills or hemoptysis. He does have some wheezing still. He does have shortness of breath with any activity. I reviewed his past medical history, surgical history, medications, allergies all in detail. PHYSICAL EXAMINATION: VITAL SIGNS: Show temperature 98.1, pulse 91, respiratory rate 22, blood pressure 122/69, satting 95% on 2 liters nasal cannula. HEENT: Atraumatic, normocephalic. NECK: Trachea midline. LUNGS: Mild expiratory wheezing. HEART: S1, S2. ABDOMEN: Soft, nontender. EXTREMITIES: No edema or cyanosis. NEUROLOGIC: Alert, oriented x3, moves all extremities. I reviewed his x-ray that did show evidence of chronic obstructive pulmonary disease without any acute infiltrate. ASSESSMENT AND PLAN: 1. Acute chronic obstructive pulmonary disease exacerbation. Overall, he is doing great. I am okay with him going home in the morning on a weaning dose of oral prednisone. 2. Continue Symbicort. 3. Continue Spiriva. 4. Continue beta 2 agonist on an as-needed basis. 5. He needs to followup with Dr. Mercado as soon as he gets discharged. Thank you for this consultation. MD CHANDAN De La Fuente/ , 02:00 PM , 05:01 PM
[2017-07-17] MEDS: ATORVASTATIN 20 MG TAB PO SCH (21:32)
[2017-07-18] VITALS (9 sets, daily range): BP systolic 118–148; BP diastolic 67–81; PULSE 83–105; RESP 16–20; TEMP 97.5–98.3; O2SAT 93–97
[2017-07-18] MEDS: TIOTROPIUM BROMIDE 18 MCG INH INH SCH (08:59)
[2017-07-18] MEDS: predniSONE 20 MG TAB PO SCH (09:00)
[2017-07-18] MEDS: METOPROLOL TARTRATE 25 MG TAB PO SCH (09:00)
[2017-07-18] MEDS: SODIUM CHLORIDE 0.9% FLUSH 10 ML FLUSH IV FLUSH SCH ×2 (09:00→20:00)
[2017-07-18] MEDS: BUDESONIDE-FORMOTEROL 160/4.5 MCG INHALER INH SCH ×2 (09:00→20:00)
--- NOTE | 2017-07-18 11:33 | HHI.PR ---
Subjective Remarks Doing much better today Objective Vital Signs Date Time Temp Pulse Resp B/P (MAP) Pulse Ox O2 Delivery O2 Flow Rate FiO2 07/18/17 08:00 Nasal Cannula 2.00 07/18/17 08:00 90 07/18/17 08:00 97.5 87 20 128/71 (90) 97 07/18/17 04:00 98.0 89 17 147/81 (103) 93 07/18/17 03:59 96 07/18/17 00:00 98.0 105 16 148/74 (98) 96 07/17/17 23:56 107 07/17/17 20:30 Nasal Cannula 2.00 07/17/17 20:11 100 07/17/17 20:00 97.9 107 17 141/60 (87) 95 07/17/17 16:00 97.4 104 22 142/70 (94) 96 07/17/17 12:00 98.1 91 22 126/69 (88) 95 I/O 07/17/17 07/17/17 07/17/17 07/18/17 07/18/17 07/18/17 07:00 15:00 23:00 07:00 15:00 23:00 Intake Total 1000 ml 240 ml 240 ml Balance 1000 ml 240 ml 240 ml Intake Oral 240 ml 240 ml IV Total 1000 ml # Voids 1 3 4 Result Diagram: 07/16/17204007/16/172040 Objective Remarks General appearance no acute distress Lungs: Mild expiratory wheezing Heart: Normal S1-S2 Abdomen soft nontender Extremities no edema Neurologically oriented 3 extremities: no edema Assessment and Plan Assessment and Plan COPD exacerbation Overall he is doing very well I would like him to be discharged home later today or in the morning on a weaning dose of steroids and 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 Mercado Continue on his inhalers. I will sign off. Brady Griffin MD July 18, 2017 11:33
[2017-07-18] MEDS: ATORVASTATIN 20 MG TAB PO SCH (20:00)
[2017-07-19] VITALS (10 sets, daily range): BP systolic 123–141; BP diastolic 69–75; PULSE 60–88; RESP 18–20; TEMP 97.4–98.4; O2SAT 96–99
[2017-07-19] MEDS: METOPROLOL TARTRATE 25 MG TAB PO SCH (08:44)
[2017-07-19] MEDS: predniSONE 20 MG TAB PO SCH (08:44)
[2017-07-19] MEDS: SODIUM CHLORIDE 0.9% FLUSH 10 ML FLUSH IV FLUSH SCH ×2 (08:44→21:26)
[2017-07-19] MEDS: TIOTROPIUM BROMIDE 18 MCG INH INH SCH (08:44)
[2017-07-19] MEDS: BUDESONIDE-FORMOTEROL 160/4.5 MCG INHALER INH SCH ×2 (08:44→21:25)
--- NOTE | 2017-07-19 10:29 | HHI.HP ---
History of Present Illness Primary Care Physician Rolando Martinez, DO Admission Diagnosis COPD Exacerbation Diagnoses: History of Present Illness 67 y/o male presented to ER for increased SOB with no reported relief after taking Advair, Pro air and Spiriva. He complain of dyspnea on excretion as well as orthopnea. Review of Systems Constitutional: COMPLAINS OF: Fatigue Respiratory: COMPLAINS OF: Wheezing, Shortness of breath Cardiovascular: COMPLAINS OF: Dyspnea on Exertion, Orthopnea Past Family Social History Allergies: Coded Allergies: No Known Allergies (Verified Allergy, Unknown, 07/17/17) Past Medical History COPD HTN Kidney stones Hypo Thyroid Past Surgical History Colon resection Reported Medications Reported Aspir-81 (Aspirin) 81 Mg Tabdr Advair Diskus Inh (Fluticasone-Salmeterol Inh) 250-50 Mcg/Blist Aer 1 Puff INH BID Rinse mouth after use. Fluticasone Nasal [place] 50 Mcg/Act Naspr 50 Mcg EACH NARE BID 50 mcg/spray Rosuvastatin (Rosuvastatin Calcium) 10 Mg Tab 10 Mg PO HS Metoprolol Tartrate 25 Mg Tab 25 Mg PO DAILY Spiriva Respimat Inh (Tiotropium Inh) 2.5 Mcg/Act Aero 2 Puff INH DAILY 2.5 mcg = 1 inhalation Active Ordered Medications Current Medications Medications (Trade) Dose Ordered Sig/Rocio Route Start Time Stop Time Status Last Admin (NS Flush) 2 ml UNSCH PRN IVF 07/16/17 20:30 ([place] 5-325 Mg) 1 tab Q6H PRN PO 07/17/17 03:45 (Lopressor) 25 mg DAILY PO 07/17/17 09:00 07/19/17 08:44 (Deltasone) 40 mg DAILY PO 07/17/17 09:00 07/19/17 08:44 (Symbicort 160-4.5 Mcg Inh) 2 puff BID INH 07/17/17 09:00 07/19/17 08:44 (Lipitor) 20 mg HS PO 07/17/17 21:00 07/18/17 20:00 (Spiriva Inh) 1 mcg DAILY INH 07/17/17 09:00 07/19/17 08:44 (NS Flush) 2 ml UNSCH PRN IV FLUSH 07/17/17 03:45 (NS Flush) 2 ml BID IV FLUSH 07/17/17 09:00 07/19/17 08:44 Social History Denies ETOH, Tobacco Physical Exam Vital Signs Vital Signs Date Time Temp Pulse Resp B/P (MAP) Pulse Ox O2 Delivery O2 Flow Rate FiO2 07/19/17 08:00 98.1 88 18 123/75 (91) 97 07/19/17 08:00 Nasal Cannula 2.00 07/19/17 07:00 84 07/19/17 04:30 97.4 86 20 141/74 (96) 96 07/19/17 04:00 84 07/19/17 00:00 88 07/18/17 23:46 98.3 90 18 118/73 (88) 97 07/18/17 20:00 83 07/18/17 19:57 98.2 83 18 140/67 (91) 95 07/18/17 19:30 Nasal Cannula 2.00 07/18/17 16:00 84 07/18/17 16:00 98.2 88 20 124/68 (86) 94 07/18/17 12:00 97.9 85 20 133/71 (91) 96 07/18/17 12:00 84 Physical Exam GENERAL: This is a well-nourished, well-developed patient, in no apparent distress. SKIN: No rashes, warm and dry. HEAD: Atraumatic. Normocephalic. No temporal or scalp tenderness. EYES: Pupils equal round and reactive, No scleral icterus. No injection or drainage. ENT: Nose without bleeding, purulent drainage or septal hematoma. Throat without erythema, Airway patent. NECK: Trachea midline. No JVD or lymphadenopathy. Supple, nontender. CARDIOVASCULAR: Regular rate and rhythm without murmurs, gallops, or rubs. RESPIRATORY:Breath sounds equal bilaterally, expiratory wheeze. GASTROINTESTINAL: Abdomen soft, non-tender, nondistended. MUSCULOSKELETAL: Extremities without clubbing, cyanosis, or edema. Negative Homans sign bilaterally. NEUROLOGICAL: Awake and alert. Normal speech. Laboratory Laboratory Tests Test 07/16/17 20:41 Red Blood Count 5.96 MIL/MM3 (4.50-5.90) Eosinophils (%) (Auto) 9.5 % (0.0-4.0) Eosinophils # (Auto) 0.7 TH/MM3 (0-0.4) Blood Urea Nitrogen 19 MG/DL (7-18) Random Glucose 140 MG/DL (74-106) Estimat Glomerular Filtration Rate 55 ML/MIN (>89) Result Diagram: 07/16/17204007/16/172040 Imaging Last 72 hours Impressions Chest X-Ray 07/16/172018 Signed Impressions: Service Date/Time: Sunday, July 16, 2017 20:28 - CONCLUSION: Hyperinflation suggesting COPD. No acute infiltrate or effusion. MD Khadijah Rosen Jr. VTE Risk Assessment Caprini VTE Risk Assessment: Mod/High Risk (score >= 2) Caprini Risk Assessment Model Point Value = 1 Point Value = 2 Point Value = 3 Point Value = 5 Age 41-60 Minor surgery BMI > 25 kg/m2 Swollen legs Varicose veins or History of unexplained or recurrent spontaneous Oral contraceptives or hormone replacement Sepsis (< 1 month) Serious lung disease, including pneumonia (< 1 month) Abnormal pulmonary function Acute myocardial infarction Congestive heart failure (< 1 month) History of inflammatory bowel disease Medical patient at bed rest Age 61-74 Arthroscopic surgery Major open surgery (> 45 min) Laparoscopic surgery (> 45 min) Malignancy Confined to bed (> 72 hours) Immobilizing plaster cast Central venous access Age >= 75 History of VTE Family history of VTE Factor V Leiden Prothrombin [id number] Lupus anticoagulant Anticardiolipin antibodies Elevated serum homocysteine Heparin-induced thrombocytopenia Other congenital or acquired thrombophilia Stroke (< 1 month) Elective arthroplasty Hip, pelvis, or leg fracture Acute spinal cord injury (< 1 month) Prophylaxis Regimen Total Risk Factor Score Risk Level Prophylaxis Regimen 0-1 Low Early ambulation 2 Moderate Order ONE of the following: *Sequential Compression Device (SCD) *Heparin 5000 units SQ BID 3-4 Higher Order ONE of the following medications: *Heparin 5000 units SQ TID *Enoxaparin/Lovenox 40 mg SQ daily (WT < 150 kg, CrCl > 30 mL/min) *Enoxaparin/Lovenox 30 mg SQ daily (WT < 150 kg, CrCl > 10-29 mL/min) *Enoxaparin/Lovenox 30 mg SQ BID (WT < 150 kg, CrCl > 30 mL/min) AND/OR *Sequential Compression Device (SCD) 5 or more Highest Order ONE of the following medications: *Heparin 5000 units SQ TID (Preferred with Epidurals) *Enoxaparin/Lovenox 40 mg SQ daily (WT < 150 kg, CrCl > 30 mL/min) *Enoxaparin/Lovenox 30 mg SQ daily (WT < 150 kg, CrCl > 10-29 mL/min) *Enoxaparin/Lovenox 30 mg SQ BID (WT < 150 kg, CrCl > 30 mL/min) AND *Sequential Compression Device (SCD) Assessment and Plan Problem List: (1) COPD exacerbation ICD Codes: J44.1 - Chronic obstructive pulmonary disease with (acute) exacerbation Status: Acute Plan: Pulmonary consult, Bronchodilators Prednisone O2 supplement (2) HTN (hypertension) ICD Codes: I10 - Essential (primary) hypertension Plan: Cont home medications Assessment and Plan 07/19/17- Voices he is breathing better, will wean off O2, likely DC in am. Kelsea Johnson July 19, 2017 10:29
[2017-07-19] MEDS: ATORVASTATIN 20 MG TAB PO SCH (21:25)
[2017-07-19] MEDS: HEPARIN SODIUM - SQ 10,000 UNITS/ML VIAL SQ SCH (21:25)
[2017-07-20 00:01] VITALS: BP 145/66; PULSE 80; RESP 18; TEMP 98; O2SAT 98
[2017-07-20 04:00] VITALS: BP_SYST 127; BP_SYST 145; BP_DIAS 64; BP_DIAS 66; PULSE 80; PULSE 93; RESP 18; RESP 19; TEMP 98.2; O2SAT 97; O2SAT 98
[2017-07-20 04:06] VITALS: PULSE 79
[2017-07-20] MEDS: METOPROLOL TARTRATE 25 MG TAB PO SCH (07:40)
[2017-07-20] MEDS: SODIUM CHLORIDE 0.9% FLUSH 10 ML FLUSH IV FLUSH SCH (07:40)
[2017-07-20] MEDS: predniSONE 20 MG TAB PO SCH (07:40)
[2017-07-20] MEDS: TIOTROPIUM BROMIDE 18 MCG INH INH SCH (07:41)
[2017-07-20] MEDS: BUDESONIDE-FORMOTEROL 160/4.5 MCG INHALER INH SCH (07:41)
[2017-07-20] MEDS: HEPARIN SODIUM - SQ 10,000 UNITS/ML VIAL SQ SCH (07:41)
[2017-07-20 08:00] VITALS: BP 145/85; PULSE 76; PULSE 79; RESP 17; TEMP 98.3; O2SAT 95
[2017-07-20] MEDS ORDERED: PRED20 PO (09:49)
--- NOTE | 2017-07-20 09:59 | HHI.DS ---
Discharge Summary Admission Date July 17, 2017 at 03:43 Admitting Diagnosis COPD Exacerbation (1) COPD exacerbation ICD Codes: J44.1 - Chronic obstructive pulmonary disease with (acute) exacerbation Status: Acute Brief History 67 y/o male presented to ER for increased SOB with no reported relief after taking Advair, Pro air and Spiriva. He complain of dyspnea on excretion as well as orthopnea. CBC/BMP: 07/16/17204007/16/172040 Imaging Last Impressions Chest X-Ray 07/16/172018 Signed Impressions: Service Date/Time: Sunday, July 16, 2017 20:28 - CONCLUSION: Hyperinflation suggesting COPD. No acute infiltrate or effusion. Mayo Neal Jr., MD PE at Discharge GENERAL: This is a well-nourished, in no distress SKIN: No rashes, warm and dry. CARDIOVASCULAR: Regular rate and rhythm without murmurs, gallops, or rubs. RESPIRATORY:Breath sounds equal bilaterally. clear GASTROINTESTINAL: Abdomen soft, non-tender, nondistended. MUSCULOSKELETAL: Extremities without clubbing, cyanosis, or edema. Negative Homans sign bilaterally. NEUROLOGICAL: Awake and alert. Normal speech. Hospital Course Admitted for COPD exacerbation, pulmonary consulted, Improved with IV Solu Medrol, Bronchodilators and oxygen supplement. Weaned to Room air as conditioned improved. Pt Condition on Discharge: Good Discharge Disposition: Discharge Home Discharge Instructions DIET: Follow Instructions for: As Tolerated, No Restrictions Activities you can perform: Regular-No Restrictions Follow up Referrals: PCP Follow-up - [address] Martinez Call for apt [phone] Pulmonology - 2 Weeks with Spencer Mercado MD Changed Medications: Prednisone (Prednisone) 20 Mg Tab 40 MG PO DAILY for Shortness of Breath for 4 Days, TAB 0 Refills (Changed from: Removed Quantity; Take 40 mg (2 tablets) daily for 5 days) Take 40 mg (2 tablets) daily for 5 days Take 20 mg daily for 5 days Take 10 mg daily for 5 days Take 5 mg daily for 5 days Continued Medications: Aspirin (Aspir-81) 81 Mg Tabdr Fluticasone Nasal [place] (Fluticasone Nasal [place]) 50 Mcg/Act Naspr 50 MCG EACH NARE BID for Allergy Management, #1 BOTTLE 0 Refills 50 mcg/spray Fluticasone-Salmeterol Inh (Advair Diskus Inh) 250-50 Mcg/Blist Aer 1 PUFF INH BID, #1 INHALER 0 Refills Rinse mouth after use. Hydrocodone-Acetaminophen (Lortab) 5-325 Mg Tab 1-2 TAB PO Q6H PRN for PAIN, #20 TAB 0 Refills Metoprolol Tartrate (Metoprolol Tartrate) 25 Mg Tab 25 MG PO DAILY, #30 TAB 0 Refills Rosuvastatin (Rosuvastatin) 10 Mg Tab 10 MG PO HS for Cholesterol Management, TAB 0 Refills Tiotropium Inh (Spiriva Respimat Inh) 2.5 Mcg/Act Aero 2 PUFF INH DAILY for COPD, #1 INHALER 0 Refills 2.5 mcg = 1 inhalation Kelsea Johnson July 20, 2017 09:59
[2017-07-20] MEDS ORDERED: OXYGENDME NAS.CANULA ×2 (14:03→16:46)
--- NOTE | 2017-07-20 14:06 | HHI.FF ---
Face to Face Verification Diagnosis: (1) COPD (2) HTN (hypertension) Physical Therapy Order: Evaluate and Treat Home Health Nursing Order: Oxygen administration education I have seen patient Mauricio Lopes on 07/20/17. My clinical findings support the need for the requested home health care services because: Patient has SOB I certify that my clinical findings support that this patient is homebound because: Hx COPD- exertion dyspnea/weakness Kelsea Johnson July 20, 2017 14:06
== END 2017-07-20 17:43 | disposition home health service (06) | DRG 192 ==
LOC: NEPC 19:48 → NEDA 23:35 → N04B 07-17 00:26 → OBSVTOIN 07-17 03:43
PROVIDERS: ADMIT Family Medicine; ATTEND Family Medicine
DX: J44.1 Chronic obstructive pulmonary disease with (acute) exacerbation (principal); I10 Essential (primary) hypertension; H91.91 Unspecified hearing loss, right ear; E03.9 Hypothyroidism, unspecified
CPT/HCPCS: 71045; 80048; 85025; 94640; 94664; 96361; 96374; J1644; J2930; J7030; J7512; J7613